=== PATIENT | female | born 1965 | race Asian ===

== ENCOUNTER 2017-02-03 19:43 | Emergency (ER) | END 2017-02-04 00:02 | disposition home or self-care (01) | DX: K59.00 Constipation, unspecified (principal); N39.0 Urinary tract infection, site not specified; E11.9 Type 2 diabetes mellitus without complications; I10 Essential (primary) hypertension; Z79.84 Long term (current) use of oral hypoglycemic drugs; Z85.3 Personal history of malignant neoplasm of breast | CPT/HCPCS: 74176; 80053; 81001; 82150; 83690; 84703; 85025; 85610; 85730; 87086; 96374; 96375; J0696; J1170; J1885; J2270; J2405; J7030; Z7502 ==

== ENCOUNTER 2017-06-29 10:52 | Emergency (ER) | payer OTHER ==
[~2017-06-29] VITALS: Wt 64.1 kg
[~2017-06-29 10:52] MED LIST: ACET500C5 PO; DOCU-144 PO; DOXY100T20 PO; IBUP-1542 PO; ONDA4TAB14 PO; PHEN-538 PO
[2017-06-29] MEDS ORDERED: SOD CHLORIDE 0.9% 500 ML IV STA (11:14)
[2017-06-29] MEDS ORDERED: morphine 4 MG/ML VIAL IV STA (11:14)
--- NOTE | 2017-06-29 11:49 | RADRPT ---
PROCEDURE: Chest x-ray CLINICAL INDICATION: Chest pain TECHNIQUE: Chest single view COMPARISON: None FINDINGS: The heart is normal in size. The pulmonary vessels are normal in caliber. The lungs are clear. Th e costophrenic angles are sharp. The visualized bony thorax is unremarkable. IMPRESSION: No acute cardiopulmonary disease. RPTAT: HH .Angel Erazo MD, Date Time Electronically viewed and signed by .Angel Erazo MD, MD on 06/29/2017 11:48 .W/
[2017-06-29 12:07] LABS: BASOPHILS % 0.4 % (0.0-2.0); EOSINOPHILS # 0.1 10^3/ul (0.0-0.5); EOSINOPHILS % 0.8 % (0.0-7.0); HEMATOCRIT 37.5 % (37.0-47.0); HEMOGLOBIN 12.9 g/dl (12.0-16.0); LYMPHOCYTES # 2.7 10^3/ul (0.8-2.9); LYMPHOCYTES % 35.7 % (15.0-51.0); MEAN CORPUSCULAR HEMOGLOBIN 31.2 pg (29.0-33.0); MEAN CORPUSCULAR HGB CONC 34.4 g/dl (32.0-37.0); MEAN CORPUSCULAR VOLUME 90.6 fl (82.0-101.0); MEAN PLATELET VOLUME 8.5 fl (7.4-10.4); MONOCYTE # 0.6 10^3/ul (0.3-0.9); MONOCYTES % 7.7 % (0.0-11.0); NEUTROPHIL # 4.2 10^3/ul (1.6-7.5); NEUTROPHILS % 55.1 % (39.0-77.0); PLATELET COUNT 329 10^3/UL (140-415); RED BLOOD COUNT 4.14 10^6/ul (4.20-5.40); RED CELL DISTRIBUTION WIDTH 11.9 % (11.5-14.5); WHITE BLOOD COUNT 7.7 10^3/ul (4.8-10.8)
[2017-06-29] MEDS ORDERED: SIMV10TA PO (12:10)
[2017-06-29] MEDS ORDERED: LOSA25TA5 PO (12:10)
[2017-06-29] MEDS ORDERED: METF500T4 PO (12:11)
[2017-06-29 12:21] LABS: ANION GAP 19 (8-16); BLOOD UREA NITROGEN 15 mg/dl (7-20); CALCIUM 9.9 mg/dl (8.4-10.2); CARBON DIOXIDE 20 mmol/L (21-31); CHLORIDE 106 mmol/L (97-110); CREATININE 0.83 mg/dl (0.44-1.00); GLUCOSE 101 mg/dl (70-220); POTASSIUM 3.7 mmol/L (3.5-5.1); SODIUM 141 mmol/L (135-144)
[2017-06-29 12:36] LABS: TROPONIN-I < 0.012 ng/ml (0.00-0.12)
[2017-06-29] MEDS ORDERED: SOD CHLORIDE 0.9% 100 ML ONE (12:47)
[2017-06-29] MEDS ORDERED: IOHEXOL 100 ML ONE (12:47)
--- NOTE | 2017-06-29 13:10 | RADRPT ---
PROCEDURE: CTA Chest and pulmonary angiogram. CLINICAL INDICATION: Chest pain and shortness of breath. Rule out pulmonary emboli TECHNIQUE: CT scan of the chest and CT pulmonary angiogram was performed on a multidetector high-r esolution CT scanner. High-resolution thin slice coronal and sagittal imaging was obtained from the axial source images. 3-D volumetric rendered post processing was performed as well. The patient w as examined following the uncomplicated intravenous administration of 100 cc of Omnipaque 350. The i mages were reviewed on a PACS workstation. The total exam CTDI equals 22 mGy, and the total exam DLP equals 261.3 mGy-cm. One or more of the following dose reduction techniques were used: Automated exposure control. Adjustment of the mA and/or kV according to patient size. Use of iterative reconstruction technique. DICOM images are available. COMPARISON: No priors for comparison FINDINGS: CT chest: The trachea is midline. Thyroid gland is unremarkable. No significant axillary lymphadenopathy. No s ignificant mediastinal or hilar lymphadenopathy. The aorta demonstrates no evidence of aneurysmal dilatation or dissection. The pulmonary arterial tr unk is in the upper limits of normal in size. No evidence of abnormal filling defects in the main pu lmonary artery and its segmental branches. Heart size is within normal limits. No significant perica rdial effusion. The lungs are clear. No focal air space disease/consolidation. No evidence of pleural effusions. Air ways are patent. There is mild bibasilar atelectasis. The visualized upper abdominal organs appear to be within normal limits. The visualized osseous structures appears to within normal limits. IMPRESSION: 1. No evidence of acute pulmonary emboli. No evidence of aortic aneurysm or dissection. 2. Minimal bibasilar atelectasis. No focal air space disease/ consolidation. No evidence of pleural effusions. RPTAT: [facility] Physician Julianne Date Time Electronically viewed and signed by Physician Julianne on 06/29/2017 13:10 MANPREET/
[2017-06-29] MEDS ORDERED: DIPHENHYDRAMINE 50 MG INJ ONE (13:21)
[2017-06-29] MEDS ORDERED: DIPHENHYDRAMINE 50 MG INJ IV ONE (13:30)
[2017-06-29] MEDS ORDERED: LORA-441 PO (15:24)
--- NOTE | 2017-06-29 15:29 | ERD ---
ER Documentation Chief Complaint Chief Complaint CHEST PAIN, ONSET TODAY, SOB HPI 51-year-old female with a history of diabetes, hypertension, breast cancer status post mastectomy and chemo in 2009 presenting with right-sided chest pain for the past week, now worsening. The pain is constant, nonradiating, worse with deep breathing. Patient has associated shortness of breath. Nothing seems to make it better or worse. No associated fever, cough, hemoptysis, extremity weakness or numbness. No recent trauma. No immobilization or recent surgeries. No history of blood clots. ROS All systems reviewed and are negative except as per history of present illness. Medications Home Meds Active Scripts Lorazepam* (Ativan*) 0.5 Mg Tablet, 0.5 MG PO Q8 Y for ANXIETY, #7 TAB Prov:BRITTANY NUÑEZ MD 06/29/17 Reported Medications Metformin Hcl* (Metformin Hcl*) 500 Mg Tablet, 500 MG PO WITH BREAKFAST DINNE, # 30 TAB 06/29/17 Simvastatin* (Zocor*) 10 Mg Tablet, 10 MG PO QHS, #30 TAB 06/29/17 Losartan Potassium* (Losartan Potassium*) 25 Mg Tablet, 25 MG PO DAILY, TAB 06/29/17 Discontinued Scripts Phenazopyridine Hcl* (Pyridium*) 200 Mg Tab, 200 MG PO TID Y for URINARY PAIN, # 6 TAB Prov:ELI ZARCO 02/03/17 Doxycycline Hyclate* (Doxycycline Hyclate*) 100 Mg Tablet.dr, 100 MG PO BID for 10 Days, TAB Prov:ELI ZARCO 02/03/17 Acetaminophen* (Tylophen*) 500 Mg Capsule, 1 CAP PO Q6H Y for PAIN AND OR ELEVATED TEMP, #20 CAP Prov:PASELI LOZA 02/03/17 Docusate Sodium* (Colace*) 100 Mg Capsule, 100 MG PO DAILY Y for constipation, # 30 CAP Prov:ELI ZARCO 02/03/17 Ondansetron (Ondansetron Odt) 4 Mg Tab.rapdis, 4 MG PO Q8 Y for NAUSEA AND/OR VOMITING, #20 TAB Prov:ELI ZARCO 02/03/17 Ibuprofen* (Motrin*) 600 Mg Tab, 600 MG PO Q8, #30 TAB Prov:PASILAELI QUINTERO 02/03/17 Allergies Allergies: Coded Allergies: No Known Allergy (Unverified , 06/29/17) PMhx/Soc History of Surgery: Yes (Right Mastectomy,HYSTERECTOMY) Anesthesia Reaction: No Hx Neurological Disorder: No Hx Respiratory Disorders: No Hx Cardiac Disorders: Yes (HTN) Hx Psychiatric Problems: No Hx Miscellaneous Medical Probl: Yes (DM) Hx Alcohol Use: No Hx Substance Use: No Hx Tobacco Use: No Smoking Status: Never smoker FmHx Family History: diabetes (Mother) Physical Exam Vitals Vital Signs Date Time Temp Pulse Resp B/P Pulse Ox O2 Delivery O2 Flow Rate FiO2 06/29/17 13:37 73 20 153/106 98 Room Air 06/29/17 12:00 Nasal Cannula 2 06/29/17 10:58 98.3 83 18 145/95 100 Physical Exam Const: Crying, nontoxic hyperventilating, Head: Atraumatic Eyes: Normal Conjunctiva ENT: Normal External Ears, Nose and Mouth. Neck: Full range of motion..~ No meningismus. No JVD. Resp: Clear to auscultation bilaterally Cardio: Regular rate and rhythm, no murmurs 2+ distal pulses in all 4 extremities Abd: Soft, non tender, non distended. Normal bowel sounds Skin: No petechiae or rashes Back: No midline or flank tenderness Ext: No cyanosis, or edema. No calf tenderness. Neur: Awake and alert Psych: Normal Mood and Affect Result Diagram: 06/29/17 1140 06/29/17 1140 Results 24 hrs Laboratory Tests Test 06/29/17 11:40 White Blood Count 7.710^3/ul Red Blood Count 4.1410^6/ul Hemoglobin 12.9g/dl Hematocrit 37.5% Mean Corpuscular Volume 90.6fl Mean Corpuscular Hemoglobin 31.2pg Mean Corpuscular Hemoglobin Concent 34.4g/dl Red Cell Distribution Width 11.9% Platelet Count 97480^3/UL Mean Platelet Volume 8.5fl Neutrophils % 55.1% Lymphocytes % 35.7% Monocytes % 7.7% Eosinophils % 0.8% Basophils % 0.4% Nucleated Red Blood Cells % 0.0/100WBC Neutrophils # 4.210^3/ul Lymphocytes # 2.710^3/ul Monocytes # 0.610^3/ul Eosinophils # 0.110^3/ul Basophils # 0.010^3/ul Nucleated Red Blood Cells # 0.010^3/ul Sodium Level 141mmol/L Potassium Level 3.7mmol/L Chloride Level 106mmol/L Carbon Dioxide Level 20mmol/L Anion Gap 19 Blood Urea Nitrogen 15mg/dl Creatinine 0.83mg/dl Glucose Level 101mg/dl Calcium Level 9.9mg/dl Troponin I < 0.012ng/ml Serum HCG, Qualitative NEGATIVE Current Medications Medications (Trade) Dose Ordered Sig/Maria Isabel Route PRN Reason Start Time Stop Time Status Last Admin Dose Admin Sodium Chloride (NS) 500 ml @ 500 mls/hr Q1H STAT IV 06/29/17 11:14 06/29/17 12:13 DC 06/29/17 12:00 Morphine Sulfate (morphine) 4 mg ONCE STAT IV 06/29/17 11:14 06/29/17 11:17 DC 06/29/17 11:45 IV Flush 10 ml 10 ml STK-MED ONCE .ROUTE 06/29/17 12:47 06/29/17 12:48 DC 06/29/17 13:04 Sodium Chloride 100 ml @ ud STK-MED ONCE .ROUTE 06/29/17 12:47 06/29/17 12:48 DC 06/29/17 13:05 Iohexol (Omnipaque) 100 ml @ ud STK-MED ONCE .ROUTE 06/29/17 12:47 06/29/17 12:48 DC 06/29/17 13:04 Diphenhydramine HCl (Benadryl) 50 mg ONCE ONCE IV 06/29/17 13:30 06/29/17 13:31 DC 06/29/17 13:30 Diphenhydramine HCl (Benadryl) 50 mg STK-MED ONCE .ROUTE 06/29/17 13:21 06/29/17 13:22 DC Procedures/[facility] EKG: Rate/Rhythm: Normal Sinus Rhythm QRS, ST, T-waves: No changes consistent w/ acute ischemia Impression: No evidence of ischemia or arrhythmia Chest x-ray shows no acute abnormalities CTPA shows no acute abnormalities in the chest, specifically no pulmonary embolism Labs CBC unremarkable BMP unremarkable Troponin within normal limits MDM Patient is presenting with 1 week of chest pain and shortness of breath. Her vitals are stable and she is afebrile. Chest x-ray did not show any significant abnormalities. CT angiogram of the chest was done to evaluate for possible pulmonary embolism given her history of cancer, which was normal. I have a low suspicion for acute coronary syndrome or aortic dissection. Patient was given analgesics with relief of her symptoms. Patient's thoracic symptoms have stabilized while in the department and are stable for outpatient follow up. Exam and work up not consistent w/ ischemia, arrhythmia, PE or dissection. Advised to follow-up with primary care physician in 1-2 days and to return for worsening symptoms. Ativan prescription given per patient request as she thinks this may be anxiety. Departure Diagnosis: Primary Impression: Chest pain Chest pain type: chest pain on breathing Qualified Code: R07.1 - Chest pain on breathing Condition: Stable Patient Instructions: Anxiety Reaction, Chest Pain, Uncertain Cause Referrals: [facility] (PCP) Additional Instructions: Return to the ER for any worsening symptoms. Follow-up with your primary care doctor in 1-2 days. BRITTANY NUÑEZ MD Jun 29, 2017 15:29
[2017-06-29 16:04] VITALS: BP 127/64; PULSE 71; RESP 20
== END 2017-06-29 16:04 | disposition home or self-care (01) ==
LOC: E/R 10:52
DX: R07.1 Chest pain on breathing (principal); I10 Essential (primary) hypertension; E11.9 Type 2 diabetes mellitus without complications; Z79.84 Long term (current) use of oral hypoglycemic drugs
CPT/HCPCS: 36415; 71010; 71275; 80048; 84484; 84703; 85025; 93005; 96374; 96375; J1200; J2270; J7040; Q9967; Z7502; Z7610

== ENCOUNTER 2017-10-09 08:38 | Day surgery (SDC) | END 2017-10-12 08:25 | disposition home or self-care (01) ==

== ENCOUNTER 2017-12-15 20:12 | Emergency (ER) | END 2017-12-16 00:02 | disposition home or self-care (01) ==